=== PATIENT | male | born 1950 | race Caucasian/White ===

== ENCOUNTER → 2016-07-01 | Outpatient (CLI) | payer OTHER ==
--- NOTE | 2016-07-04 15:02 | CR ---
EXAM DATE: 07/01/16 PATIENT'S AGE: 65 Patient: AUGUSTA LINDQUIST Facility: [place], [place] Site . Site : 1950 Study: XRay Chest [id number] 4:09:23 PM Ordering Physician: Madelyn Mary Final Report: INDICATION: Paroxysmally atrial fibrillation TECHNIQUE: Chest 2 views. COMPARISON: None FINDINGS: Cardiovascular and mediastinum: Heart size and vasculature are normal in caliber and appearance. Mediastinum is within normal limits. Lungs and pleural spaces: Lungs are clear. No sign of infiltrate or mass. No sign of pleural effusion. No pneumothorax. Bones and soft tissues: Surgical anchors are seen within the humeral heads bilaterally. IMPRESSION: No sign of acute disease. Dictated by Jen Colón MD @ Jul 01 2016 11:58PM (Electronic Signature) Report Signed by Proxy and Original Signed Document filed in the Medical Record. KANCHAN
== END ==
LOC: MW.CHIM 15:45
PROVIDERS: ATTEND Internal Medicine
DX: I48.0 Paroxysmal atrial fibrillation (principal)
CPT/HCPCS: 71020; 71020-26

== ENCOUNTER → 2016-07-23 | Outpatient (CLI) | payer OTHER | END | disposition home or self-care (01) | LOC: MW.CHIM 10:37 | PROVIDERS: ATTEND Internal Medicine | DX: I48.91 Unspecified atrial fibrillation (principal); R94.31 Abnormal electrocardiogram [ECG] [EKG] | CPT/HCPCS: 93005 ==

== ENCOUNTER → 2016-08-05 | Outpatient (CLI) | payer OTHER | END | disposition home or self-care (01) | LOC: MW.RT 16:07 | PROVIDERS: ATTEND Internal Medicine | DX: I48.0 Paroxysmal atrial fibrillation (principal) | CPT/HCPCS: 93270 ==

== ENCOUNTER → 2016-08-15 | Outpatient (CLI) | payer OTHER ==
--- NOTE | 2016-08-15 09:54 | PCM.PRNOTE ---
- Free Text/Narrative Note: Date of service 08/15/2016 Exercise ECG Indication afib Patient was brought to the stress test lab in postabsorptive state verbal and paper consent was obtained from patient Vital signs at resting state blood pressure of 136/82 with a heart rate of 65 EKG shows sinus rhythm, No ST changes Maximal heart rate of 135 and target heart rate is 133 Patient reached the target heart rate, completed stage III Mulugeta protocol EKG shows sinus rhythm, no further ST changes, no change in QRS width Peak blood pressure is 175/90 Total exercise time of 8.41 minutes METS 10.1 The test terminated due to reaching target HR Impression Normal hemodynamics, normal chronotropic, good exercise capacity Plan Continue flecanide
== END ==
LOC: MW.NM 09:09
PROVIDERS: ATTEND Internal Medicine
DX: I48.0 Paroxysmal atrial fibrillation (principal)
CPT/HCPCS: 93017

== ENCOUNTER 2020-01-11 06:29 | Day surgery (SDC) | payer OTHER ==
[~2020-01-11 06:29] MED LIST: Lactated Ringers 1,000 ML IV SCH; Sodium Chloride 0.9% 10 ML SDV IV PRN; Sodium Chloride 0.9% 10 ML Syringe FLUSH PRN; Sodium Chloride 0.9% 2.5 ML Syringe FLUSH PRN
[2020-01-11] MEDS ORDERED: Lidocaine 2% 5 ML SDV ONE (07:04)
[2020-01-11] MEDS ORDERED: fentaNYL 100 MCG/2 ML SDV ONE (07:05)
[2020-01-11] MEDS ORDERED: Propofol 200 MG/20 ML SDV ONE ×2 (07:05→08:13)
--- NOTE | 2020-01-11 07:15 | PCM.PREANE ---
Preanesthetic Assessment - Anesthesia/Transfusion/Family Hx Anesthesia History: Prior Anesthesia Without Reaction Family History of Anesthesia Reaction: No Transfusion History: No Prior Transfusion(s) - Review of Systems General: No Symptoms Pulmonary: No Symptoms Cardiovascular: No Symptoms Gastrointestinal: No Symptoms Neurological: No Symptoms Other: Reports: None - Physical Assessment NPO Status Date: 01/10/20 Height: 6 ft Weight: 128.82 kg ASA Class: 3 Mental Status: Alert & Oriented x3 Airway Class: Mallampati = 2 Dentition: Reports: Normal Dentition ROM/Head Extension: Full Lungs: Clear to Auscultation, Normal Respiratory Effort Cardiovascular: Regular Rate, Regular Rhythm - Allergies Allergies/Adverse Reactions: Allergies Allergy/AdvReac Type Severity Reaction Status Date / Time No Known Allergies Allergy Verified 01/05/20 10:14 - Blood Blood Available: Yes - Anesthesia Plan Pre-Op Medication Ordered: None - Acknowledgements Anesthesia Type Planned: General Anesthesia (tiva) Pt an Appropriate Candidate for the Planned Anesthesia: Yes Alternatives and Risks of Anesthesia Discussed w Pt/Guardian: Yes Pt/Guardian Understands and Agrees with Anesthesia Plan: Yes Additional Comments: pmh: cad (abn stress test with "normal" heart cath), gerd, MO, parox afib- in sinus now- occ palp and tachycardias- rxed metopralol and flecanide, NOLA-uses CPAP PreAnesthesia Questionnaire HEENT History: Reports: None Cardiovascular History: Reports: Afib, CAD Other Cardiovascular History: Cardioverted for afib in Dec 2011, second episode of A.fib in 12/04 converted to NSR after week of meds. Second stress test abnormal but coronary angiogram in [place] was normal. Now NSR. Respiratory History: Reports: None, Other (See Below) Other Respiratory History: uses CPAP nightly Gastrointestinal History: Reports: GERD, Hiatal Hernia, Other (See Below) Other Gastrointestinal History: some GERD in the past- not now Genitourinary History: Reports: None Other Genitourinary History: hx of passing multiple kidney stones Musculoskeletal History: Reports: Arthritis Other Musculoskeletal History: knees Neurological History: Reports: None Psychiatric History: Reports: None Endocrine/Metabolic History: Reports: Obesity/BMI 30+ Hematologic History: Reports: None Immunologic History: Reports: None Oncologic (Cancer) History: Reports: None Dermatologic History: Reports: None - Past Surgical History HEENT Surgical History: Reports: None Male Surgical History: Reports: None - SUBSTANCE USE Smoking Status *Q: Former Smoker Tobacco Use Within Last Twelve Months: No Days Per Week of Alcohol Use: 4 Number of Drinks Per Day: 2 Total Drinks Per Week: 8 Recreational Drug Use History: No - HOME MEDS Home Medications: Home Meds Metoprolol Succinate 25 mg PO QAM 05/17/16 [History] Allopurinol [Zyloprim] 300 mg PO DAILY 01/05/20 [History] Aspirin 1 - 2 tab PO ASDIRECTED PRN 01/05/20 [History] Flecainide Acetate 50 mg PO BID 01/05/20 [History] - CURRENT (IN HOUSE) MEDS Current Meds: Current Medications Lactated Ringer's (Ringers, Lactated) 1,000 mls @ 125 mls/hr IV ASDIRECTED AVELINA Sodium Chloride (Saline Flush) 10 ml FLUSH ASDIRECTED PRN PRN Reason: Keep Vein Open Sodium Chloride (Saline Flush) 2.5 ml FLUSH ASDIRECTED PRN PRN Reason: Keep Vein Open Sodium Chloride (Saline Flush) 10 ml FLUSH ASDIRECTED PRN PRN Reason: Keep Vein Open Sodium Chloride (Saline Flush) 2.5 ml FLUSH ASDIRECTED PRN PRN Reason: Keep Vein Open Sodium Chloride (Normal Saline) 10 ml IV ASDIRECTED PRN PRN Reason: IV Use Discontinued Medications Fentanyl (Sublimaze) Confirm Administered Dose 100 mcg .ROUTE .STK-MED ONE Stop: 01/11/20 07:06 Lidocaine (Xylocaine-Mpf 2%) Confirm Administered Dose 5 ml .ROUTE .STK-MED ONE Stop: 01/11/20 07:05 Propofol (Diprivan 20 Ml) Confirm Administered Dose 400 mg .ROUTE .STK-MED ONE Stop: 01/11/20 07:06
[2020-01-11] MEDS ORDERED: Glycopyrrolate 0.2 MG/ML SDV ONE ×2 (07:51→08:05)
--- NOTE | 2020-01-11 08:50 | PCM.OPNOTE ---
- General Post-Op/Procedure Note Date of Surgery/Procedure: 01/11/20 Operative Procedure(s): Diagnostic EGD and colonoscopy Findings: Normal appearing EGD, transverse colon polyp x 2, descending colon polyp, rectal polyp Pre Op Diagnosis: History of colon polyps, RUQ pain Post-Op Diagnosis: Normal appearing EGD, transverse colon polyp x 2, descending colon polyp, rectal polyp Anesthesia Technique: MAC Primary Surgeon: Carrie Maza Condition: Good
[2020-01-11 08:52] VITALS: PULSE 65
[2020-01-11 09:28] VITALS: BP 138/75
--- NOTE | 2020-01-11 10:26 | PCM.POSTAN ---
POST ANESTHESIA ASSESSMENT - MENTAL STATUS Mental Status: Alert, Oriented - VITAL SIGNS Vital Signs: Last Vital Signs Temp 96.4 F L 01/11/20 08:55 Pulse 65 01/11/20 08:55 Resp 16 01/11/20 08:55 BP 138/75 01/11/20 08:55 Pulse Ox 95 01/11/20 08:55 - RESPIRATORY Respiratory Status: Respiratory Rate WNL, Airway Patent, O2 Saturation Stable - CARDIOVASCULAR CV Status: Pulse Rate WNL, Blood Pressure Stable - GASTROINTESTINAL GI Status: No Symptoms - POST OP HYDRATION Hydration Status: Adequate & Stable
--- NOTE | 2020-01-11 10:27 | PCM48HPAN ---
Post Anesthesia Note - EVALUATION WITHIN 48HRS OF ANESTHETIC Vital Signs in Normal Range: Yes Patient Participated in Evaluation: Yes Respiratory Function Stable: Yes Airway Patent: Yes Cardiovascular Function Stable: Yes Hydration Status Stable: Yes Pain Control Satisfactory: Yes Nausea and Vomiting Control Satisfactory: Yes Mental Status Recovered: Yes Vital Signs: Last Vital Signs Temp 96.4 F L 01/11/20 08:55 Pulse 65 01/11/20 08:55 Resp 16 01/11/20 08:55 BP 138/75 01/11/20 08:55 Pulse Ox 95 01/11/20 08:55
--- NOTE | 2020-01-12 22:29 | OR ---
SURGEON: CARRIE MAZA MD DATE OF PROCEDURE: 01/11/2020 PREOPERATIVE DIAGNOSES: 1. Right upper quadrant pain. 2. History of colon polyps. POSTOPERATIVE DIAGNOSES: 1. Right upper quadrant pain. 2. Transverse colon polyps x2. 3. Descending colon polyp x1. 4. Rectal polyp x1. PROCEDURES PERFORMED: Diagnostic esophagogastroduodenoscopy and colonoscopy. PRIMARY SURGEON: Carrie Maza MD ANESTHESIA: MAC. INSTRUMENT USED: Olympus colonoscope and endoscope. EXTENT OF EXAM: To the second portion of duodenum, to the cecum. PREPARATION: Good. LIMITATIONS: None. INDICATIONS FOR EXAMINATION: The patient is a 69-year-old male with a past medical history of colon polyps. He is due for repeat colonoscopy. The patient also has been complaining of some intermittent right upper quadrant pain. An ultrasound was performed, which was normal. The decision was made to proceed with a diagnostic EGD as well. I explained the procedures, expected perioperative course, and risks. The patient verbalized understanding and wishes to proceed. PROCEDURE IN DETAIL: The patient was brought into the endoscopy suite and placed in the left lateral decubitus position. A time-out was completed verifying the patient's name, age, date of , allergies, and procedure to be performed. Monitored anesthesia care was induced and continuous oxygen was provided via nasal cannula throughout the procedure. After adequate sedation was achieved, a well lubricated endoscope was placed in the patient's mouth and advanced under direct visualization to the second portion of duodenum. This appeared normal and a photograph was taken. The scope was then fully withdrawn while examining the color, texture, anatomy, and integrity of the mucosa of the upper GI tract. The duodenum appeared normal. A photograph of this was taken. The scope was brought into the stomach and a photograph was taken of the pylorus and GE junction. Both appeared normal. Biopsies were taken of the gastric antrum, body, and fundus and sent for histologic review and H. pylori testing. The scope was then brought into the distal esophagus and a photograph was taken of the Z-line. This appeared normal. The remainder of the esophageal mucosa was free of pathology. The scope was removed and this portion of procedure was terminated. A digital rectal exam was performed. This exam was within normal limits. A well-lubricated colonoscope was inserted in the rectum and advanced under direct visualization to the level of the cecum. The cecum was identified by both visual and anatomic landmarks. A photograph was taken of the cecal cap as well as with the scope retroflexed within the cecum. The scope was then fully withdrawn while examining the color, texture, anatomy, and integrity of mucosa from the cecum to the anal canal. In the transverse colon, the patient was noted to have two sessile polyps. One of these was removed in piecemeal fashion using cold biopsy forceps. The other was removed using a cold loop. The patient also had a small sessile polyp within the descending colon as well as one in the rectum. These were removed in piecemeal fashion using cold biopsy forceps. The scope was then brought into the rectum and retroflexed to allow visualization of the anal canal opening. This appeared normal and a photograph was taken. The scope was then straightened out and fully withdrawn. The cecum to anus time was 21 minutes. The patient tolerated the procedure well and was transferred to the PACU in stable condition. ENDOSCOPIC DIAGNOSES: 1. Right upper quadrant pain. 2. Transverse colon polyps x2. 3. Descending colon polyp x1. 4. Rectal polyp x1. RECOMMENDATIONS: Follow up in clinic in 2 weeks. PINO JENSEN /[id number]
== END 2020-01-11 09:20 | disposition home or self-care (01) ==
LOC: MW.SDS 06:29
PROVIDERS: ATTEND Surgery
DX: Z12.11 Encounter for screening for malignant neoplasm of colon (principal); D12.3 Benign neoplasm of transverse colon; D12.4 Benign neoplasm of descending colon; D12.8 Benign neoplasm of rectum; K29.50 Unspecified chronic gastritis without bleeding; E66.9 Obesity, unspecified; K21.9 Gastro-esophageal reflux disease without esophagitis; Z87.891 Personal history of nicotine dependence; Z79.899 Other long term (current) drug therapy; Z68.38 Body mass index [BMI] 38.0-38.9, adult; Z86.010 Personal history of colon polyps; Z98.890 Other specified postprocedural states
CPT/HCPCS: 43239; 45380; 88305; 88312; J2001; J2704; J3010; J3490; J7120; 00813

== ENCOUNTER 2020-11-05 16:55 | Emergency (ER) | payer OTHER ==
[2020-11-05 17:45] VITALS: PULSE 61
[2020-11-05] MEDS ORDERED: Diphtheria,Pertussis(Acell),Tetanus Vaccine 0.5 ML Syringe IM ONE (18:03)
[2020-11-05] MEDS ORDERED: Bacitracin Oint 1 GM U/D Packet TOP ONE (18:03)
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
[2020-11-05 18:36] VITALS: BP 128/70
== END 2020-11-05 18:41 | disposition home or self-care (01) ==
LOC: MW.ED 16:55
DX: T25.221A Burn of second degree of right foot, initial encounter (principal); T25.222A Burn of second degree of left foot, initial encounter; I48.91 Unspecified atrial fibrillation; I25.10 Atherosclerotic heart disease of native coronary artery without angina pectoris; M19.90 Unspecified osteoarthritis, unspecified site; E66.9 Obesity, unspecified; Z68.38 Body mass index [BMI] 38.0-38.9, adult; Z23 Encounter for immunization; Z79.899 Other long term (current) drug therapy; X19.XXXA Contact with other heat and hot substances, initial encounter; Y93.01 Activity, walking, marching and hiking
CPT/HCPCS: 16020; 90471; 90715; 99282; 99283-25

== ENCOUNTER 2023-05-06 08:28 | Day surgery (SDC) | payer OTHER ==
[~2023-05-06 08:28] MED LIST changes: -Sodium Chloride 0.9% 10 ML SDV IV PRN; +Sodium Chloride 0.9% 20 ML SDV IV PRN
[2023-05-06] MEDS ORDERED: propofoL 50 ML ONE (09:00)
[2023-05-06 10:42] VITALS: BP 146/82; PULSE 51
== END 2023-05-06 10:55 | disposition home or self-care (01) ==
LOC: MW.SDS 08:28
PROVIDERS: ATTEND Surgery
DX: Z12.11 Encounter for screening for malignant neoplasm of colon (principal); D12.3 Benign neoplasm of transverse colon; K62.1 Rectal polyp; I10 Essential (primary) hypertension; E78.00 Pure hypercholesterolemia, unspecified; K21.9 Gastro-esophageal reflux disease without esophagitis; I48.0 Paroxysmal atrial fibrillation; Z86.16 Personal history of COVID-19; E66.01 Morbid (severe) obesity due to excess calories; Z68.41 Body mass index [BMI] 40.0-44.9, adult; Z87.891 Personal history of nicotine dependence; Z79.01 Long term (current) use of anticoagulants; Z79.899 Other long term (current) drug therapy
CPT/HCPCS: 45380; J2704; J7120; 00811

== ENCOUNTER 2024-09-25 22:57 | Emergency (ER) | payer MEDICARE ==
[2024-09-25] MEDS: Diphtheria,Pertussis(Acell),Tetanus Vaccine 0.5 ML Syringe IM ONE (23:44)
[2024-09-26] MEDS: Lidocaine 1% with EPINEPHrine 1:100,000 10 ML MDV INJECT ONE (00:18)
[2024-09-26 01:59] VITALS: BP 116/52; PULSE 60
== END 2024-09-26 01:59 | disposition home or self-care (01) ==
LOC: MW.ED 22:57
DX: S81.811A Laceration without foreign body, right lower leg, initial encounter (principal); I48.91 Unspecified atrial fibrillation; Z79.01 Long term (current) use of anticoagulants; Z23 Encounter for immunization; Z87.891 Personal history of nicotine dependence; W26.8XXA Contact with other sharp object(s), not elsewhere classified, initial encounter; Y93.89 Activity, other specified
CPT/HCPCS: 12002; 12032; 90471; 90715; 99282-25; 99283